=== PATIENT | female | born 1985 | race Caucasian/White ===

== ENCOUNTER → 2024-12-03 10:01 | Outpatient (REF) | payer OTHER, SELFPAY | LOC: HWRAD 10:01 | PROVIDERS: ATTENDING PHYSICIAN Family Medicine | DX: K80.20 Calculus of gallbladder without cholecystitis without obstruction (principal) | CPT/HCPCS: 76700 ==

== ENCOUNTER 2025-02-25 06:17 | Day surgery (SDC) | payer OTHER, SELFPAY ==
[2025-02-25] VITALS (12 sets, daily range): BP systolic 94–138; BP diastolic 69–98; BMI 29.4
[2025-02-25] MEDS: TYLENOL 1000 MG PO (08:48)
[2025-02-25] MEDS: HEPARIN 5000 UNITS SC (08:49)
[2025-02-25] MEDS: NORMOSOL-R/PLASMALYTE-A 1000 IV (09:14)
[2025-02-25] MEDS: IC GREEN 2.5 MG IV (09:14)
--- NOTE | 2025-02-25 10:23 | OR.RPT ---
Operative Report
Operative Report
Primary Surgeon: Isai
Assisting: Hossein HUGHES
Pre-op Diagnosis: Biliary colic
Post-op Diagnosis: Same
Procedure Performed: Robot assisted laparoscopic cholecystectomy with intraoperative near-infrared imaging of major extrahepatic bile ducts and intraoperative cholangiogram
Anesthesia Type: GETA
Specimen / Cultures: Gallbladder
Estimated Blood Loss: 3cc
Complications: None immediate
Operative Findings: Soflty distended elongated gallbladder with mild wall thickening; cholangiogram with good flow of contrast into duodenum and opacification of biliary tree without filling defects
DOS: 02/25/25
Indications: This 39F developed right upper quadrant/epigastric pain and on workup was found to have cholelithiasis, with elevated liver enzymes and normal sized ducts. Laparoscopic cholecystectomy with robotic assist and with cholangiogram was
elected.
Description of procedure: The patient was placed on the operating table in the supine position. General anesthesia was induced. A time-out was completed verifying correct patient, procedure, site, positioning, and special equipment prior to
beginning this procedure. An orogastric tube was placed. The abdomen was prepped and draped in the usual sterile fashion. A stab incision was made in left upper quadrant and the Veress needle was inserted. Proper position was confirmed by aspiration
and saline meniscus test. The abdomen was insufflated with carbon dioxide to a pressure of 12 mmHg. The patient tolerated insufflation well.
An 8mm optical trocar was then inserted in the left upper quadrant. The laparoscope was inserted and the abdomen inspected. No injuries from initial trocar placement or Veress needle insertion were noted. Additional 8mm trocars were then inserted in
the following locations: above the umbilicus, right mid clavicular line at the level of the umbilicus and 6cm lateral to this on the right. The abdomen was inspected and no abnormalities were found. The table was placed in the reverse Trendelenburg
position with the right side up. The dome of the gallbladder was grasped with an atraumatic grasper and retracted over the dome of the liver. The infundibulum was grasped with an atraumatic grasper and retracted toward the right lower quadrant.
This maneuver exposed Calot�s triangle. The cystic duct and cystic artery were dissected out until the only two structures entering the gallbladder were these two structures. The common duct was protected. ICG was used to visualize the cystic and
common ducts. The common duct was protected.
A liyah was made in the cystic duct and a cholangiogram catheter was threaded through the abdominal wall and into the duct and secured with 2-0 silk. A cholangiogram was obtained showing good flow into duodenum, good opacification fo biliary tree
without filing defects. The catheter was withdrawn.
The cystic artery was controlled with bipolar and divided. The cystic duct was doubly clipped and divided. The gallbladder was dissected free from the liver bed. The gallbladder wall was mildly thickened. Hemostasis was assured and the gallbladder
and contained stones were removed using an endoscopic retrieval bag placed through the umbilical port. The gallbladder was passed off the table as a specimen. There was no evidence of bleeding from the gallbladder fossa or cystic artery or leakage
of the bile from the cystic duct stump. The umbilical trocar site was closed at the fascial level laparoscopically with 2-0 PDS. Secondary trocars were removed under direct vision and noted to be hemostatic. The laparoscope was withdrawn and the
umbilical trocar removed. The abdomen was allowed to collapse. The skin was closed with subcuticular sutures of 4-0 monocryl and topical skin adhesive. The orogastric tube was removed.
The patient tolerated the procedure well and was taken to the postanesthesia care unit in stable condition.
The assistance of Hossein HUGHES was required due to the complexity of the procedure. During the procedure she assisted with cholangiogram, retraction, extraction, and closure of the wound.
== END 2025-02-25 12:55 | disposition home or self-care (01) ==
LOC: SDS 06:17
PROVIDERS: ATTENDING PHYSICIAN Surgery
DX: K80.10 Calculus of gallbladder with chronic cholecystitis without obstruction (principal)
CPT/HCPCS: 47563; 74300; 76000; 88304; A4300